=== PATIENT | male | born 1990 | race African-American/Black ===

== ENCOUNTER 2018-02-26 08:11 | Emergency (ER) | payer OTHER ==
--- NOTE | 2018-02-26 08:49 | EDM.PDOC ---
ED HPI GENERAL MEDICAL PROBLEM - General Chief Complaint: Laceration Stated Complaint: HEAD INJURY Time Seen by Provider: 02/26/18 08:49 Source of Information: Reports: Patient History Limitations: Reports: No Limitations - History of Present Illness INITIAL COMMENTS - FREE TEXT/NARRATIVE: 27-year-old male presents to the ED with a work-related injury. Patient states he works at the [employer] in any stood up under he believes a cupboard door that was open. This resulted in blunt force trauma to the right mid forehead with resultant 3 cm laceration in an oblique fashion right upper forehead. Wound is superficial but actively bleeding. He states he was not knocked out. He does have some mild cervical neck pain. Denies any other injuries. Tetanus toxoid is up-to-date. Onset: Today Onset Date: 02/26/18 Onset Time: 08:05 Duration: Minutes: Location: Reports: Face (Right forehead.) Quality: Reports: Ache, Burning Severity: Moderate Improves with: Reports: None Worsens with: Reports: None Context: Reports: Trauma (Blunt force trauma when he stood up under a open cupboard door) Associated Symptoms: Reports: Other. Denies: Confusion, Chest Pain, Cough, cough w sputum, Diaphoresis, Fever/Chills, Headaches, Loss of Appetite, Malaise , Nausea/Vomiting, Rash, Seizure, Shortness of Breath, Syncope Treatments RESIDENT ADVISOR: Reports: Other (see below) (Mild cervical neck pain) Head Pain Score (Numeric/FACES): 7 - Related Data Allergies Allergy/AdvReac Type Severity Reaction Status Date / Time No Known Allergies Allergy Verified 02/26/18 08:26 Home Meds: Home Meds . [No Known Home Meds] 02/26/18 [History] Social & Family History - Tobacco Use Smoking Status *Q: Never Smoker - Caffeine Use Caffeine Use: Reports: Coffee - Recreational Drug Use Recreational Drug Use: No - Living Situation & Occupation Occupation: Employed ED ROS GENERAL - Review of Systems Review Of Systems: See Below Constitutional: Reports: No Symptoms HEENT: Reports: No Symptoms Respiratory: Reports: No Symptoms Cardiovascular: Reports: No Symptoms Endocrine: Reports: No Symptoms GI/Abdominal: Reports: No Symptoms : Reports: No Symptoms Musculoskeletal: Reports: No Symptoms Skin: Reports: No Symptoms Neurological: Reports: No Symptoms Psychiatric: Reports: No Symptoms Hematologic/Lymphatic: Reports: No Symptoms Immunologic: Reports: No Symptoms ED EXAM, SKIN/RASH Exam: See Below Exam Limited By: No Limitations General Appearance: Alert, WD/WN, Anxious, Mild Distress Eye Exam: Bilateral Eye: Normal Inspection Throat/Mouth: Normal Inspection, Normal Lips, Normal Teeth, Normal Oropharynx Head: Other (Has a 3 cm laceration an oblique fashion from near the hairline to the mid forehead on the ) Neck: Normal Inspection (right side of his forehead. Wound is actively bleeding and is approximately 3 cm in length.), Supple, Non-Tender, Full Range of Motion. No: Lymphadenopathy (L), Lymphadenopathy (R) Respiratory/Chest: No Respiratory Distress, Lungs Clear, Normal Breath Sounds, No Accessory Muscle Use Cardiovascular: Normal Peripheral Pulses, Regular Rate, Rhythm, No Edema, No Gallop, No Murmur ED SKIN PROCEDURES - Laceration/Wound Repair Right Upper Medial Face Lac/Wound length In cm: 3.0 Appearance: Subcutaneous, Clean (Right upper forehead) Distal NVT: Neuro & Vascular Intact Anesthetic Type: Local Local Anesthesia - Lidocaine (Xylocaine): 1% Plain Local Anesthetic Volume: 3cc Skin Prep: Saline, Sterile Drape Suture Size: other (5-0) # of Sutures: 8 Suture Type: Nylon, Interrupted, Simple Course - Vital Signs Last Recorded V/S: Last Vital Signs Temp 36.9 C 02/26/18 08:37 Pulse 57 L 02/26/18 08:37 Resp 12 02/26/18 08:37 BP 127/76 02/26/18 08:37 Pulse Ox 100 02/26/18 08:37 - Orders/Labs/Meds Meds: Medications Discontinued Medications Generic Name Dose Route Start Last Admin Trade Name Colton PRN Reason Stop Dose Admin Lidocaine HCl 50 ml 02/26/18 08:57 02/26/18 08:57 Xylocaine 1% INJECT 02/26/18 08:58 50 ml ONETIME ONE Administration - Radiology Interpretation Free Text/Narrative:: 27-year-old male presents to the ED with a laceration to his right forehead that occurred in the workplace this morning. Reports he stood up under a cupboard door with resultant blunt force trauma to the area. He has suffered a 3 cm oblique laceration to the right upper forehead. This required laceration repair with 1% non-buffered lidocaine. 8 sutures were placed in total. Patient is to cleanse the wound daily with soap and water showering is okay. Then he will apply topical antibiotic such as bacitracin or Polysporin daily. Sutures are to be removed next Tuesday in 8 days time. He was given a note to excuse him from the workplace today. Departure - Departure Time of Disposition: 09:07 Disposition: Home, Self-Care 01 Condition: Fair Clinical Impression: Laceration of skin of face Qualifiers: Encounter type: initial encounter Qualified Code(s): S01.81XA - Laceration without foreign body of other part of head, initial encounter - Discharge Information Referrals: PCP,None [Primary Care Provider] - Forms: ED Department Discharge, ED Return to Work/School Form Additional Instructions: Evaluation in the emergency room this morning in regards to a laceration to the right mid and upper forehead that occurred from blunt force trauma when he stood up under a frame. This resulted in a superficial 3 cm laceration to the right forehead that required laceration repair. Wound was cleansed and then sutured under local anesthetic 8 stitches. Treatment at home today is face cloth over the wound and then apply ice pack to the area for one half hour out of every 2 hours 3. This is in an effort to reduce swelling. May use Motrin 600 mg every 6 hours needed for pain relief. The area is to be cleansed daily with soap and water. Showering is okay. Then apply topical metabolic such as bacitracin or Polysporin to the wound once daily. Sutures are to be removed in 8 days time i.e. next Tuesday, March 06.. Return to medical care if any signs of infection occur such as increased swelling pain or obvious pus formation.
[2018-02-26] MEDS ORDERED: Lidocaine 1% 50 ML MDV INJECT ONE (08:57)
== END 2018-02-26 09:33 | disposition home or self-care (01) ==
LOC: JD.ED 08:11
DX: S01.81XA Laceration without foreign body of other part of head, initial encounter (principal); W22.8XXA Striking against or struck by other objects, initial encounter; Y99.0 Civilian activity done for income or pay
CPT/HCPCS: 12013; 99282-25; 99283-25